=== PATIENT | male | born 1985 | race Caucasian/White ===

== ENCOUNTER 2020-03-21 08:50 | Emergency (ER) | payer OTHER ==
[~2020-03-21] VITALS: Ht 180.3 cm; Wt 79.4 kg
[2020-03-21 09:13] VITALS: BP 164/84
[2020-03-21] MEDS ORDERED: KETOROLAC TROMETH 60MG/2ML VIAL IM ONE (10:30)
== END 2020-03-21 11:17 | disposition home or self-care (01) ==
LOC: ER 08:50 → EDBD 08:50 → ER 11:17
DX: S16.1XXA Strain of muscle, fascia and tendon at neck level, initial encounter (principal); S46.911A Strain of unspecified muscle, fascia and tendon at shoulder and upper arm level, right arm, initial encounter; S29.011A Strain of muscle and tendon of front wall of thorax, initial encounter; S60.222A Contusion of left hand, initial encounter; V49.9XXA Car occupant (driver) (passenger) injured in unspecified traffic accident, initial encounter; Y93.89 Activity, other specified; Y92.89 Other specified places as the place of occurrence of the external cause; Y99.8 Other external cause status
CPT/HCPCS: 70450; 71101; 72040; 73030; 73130; 96372; 99285; J1885